=== PATIENT | female | born 1990 | race Caucasian/White ===

== ENCOUNTER → 2019-07-26 | Outpatient (CLI) | payer OTHER ==
[~2019-07-26] VITALS: Ht 154.9 cm; Wt 54.4 kg
[~2019-07-26] MED LIST: ALLEGRA ALLERG180 MG PO; CARAFATE 1 GM TA1 GM PO; HAIR SKIN NAIL1 EACH PO; IBUPROFEN 600600 M1 PO; JUNEL FE 1-201 EACH PO; MACROBID 100 M100 M1 PO; MULTIVITAMINS PO; NASAL SPRAY30 M1 NS; PROTONIX40 M1 PO
--- NOTE | 2019-07-27 16:06 | PATH ---
[facility] [address] [place] [address] PATHOLOGY RPT PROCEDURE Name: JANE VILLASEÑOR MADISON Room #: REG CL M..#: [id number] Admission: 07/26/19 Date of : 88 Discharge: Report #: [id number] Path Case #: [id number] [facility] Accession Number: [id number] . 01 Material submitted: . stomach - GASTRIC POLYP . 01 Clinical history: . Pre-OP DX: GERD Post-OP DX: Gastric polyp . 02 Diagnosis: Polyp, gastric polyp, endoscopic biopsy: - Fundic gland polyp. - Negative for dysplasia. (IUV/db; 07/27/2019) LBQ 07/27/2019 1336 Local . 02 Electronically signed: . Merline Cardoza MD, Pathologist NPI- [id number] . 01 Gross description: . Received in formalin labeled "Juan, Jane, gastric polyp," is a single segment of cadet soft tissue measuring 0.4 cm in maximum dimension. The specimen is entirely submitted in cassette A1. (TSD; 07/26/2019) TOB/TOB 07/26/2019 1658 Local . 02 Pathologist provided ICD-10: K31.7 . 02 CPT . 867132 Specimen Comment: A courtesy copy of this report has been sent to [phone] Specimen Comment: Report sent to DR LOVETT,DR TIDWELL / DR ALANIS Performed at: [address], [place] [id number] MD Chip Ely MD Phone: [phone] Performed at: [address] [id number] MD Merline Cardoza MD Phone: [phone]
== END | disposition home or self-care (01) ==
LOC: GI 07:51
DX: K31.7 Polyp of stomach and duodenum (principal); K21.9 Gastro-esophageal reflux disease without esophagitis; R12 Heartburn; F32.9 Major depressive disorder, single episode, unspecified; D64.9 Anemia, unspecified; Z98.890 Other specified postprocedural states; Z79.899 Other long term (current) drug therapy; Z88.2 Allergy status to sulfonamides
CPT/HCPCS: 62110; 62900

== ENCOUNTER → 2019-08-03 | Outpatient (CLI) | payer OTHER | END | disposition home or self-care (01) | LOC: GI 07:34 | DX: K21.9 Gastro-esophageal reflux disease without esophagitis (principal); R07.9 Chest pain, unspecified; D64.9 Anemia, unspecified; F32.9 Major depressive disorder, single episode, unspecified; Z98.890 Other specified postprocedural states; Z79.899 Other long term (current) drug therapy; Z88.2 Allergy status to sulfonamides ==